=== PATIENT | female | born 1950 | race Caucasian/White ===

== ENCOUNTER 2024-10-18 04:15 | Emergency (ER) | payer OTHER ==
[~2024-10-18] VITALS: Ht 172.7 cm; Wt 84.0 kg
[~2024-10-18 04:15] MED LIST: ASPI-543 PO; CHOL20007 PO; LISI10TA34 PO; MET50T PO; SIMV20TA20 PO
--- NOTE | 2024-10-18 04:40 | ED.PDOC ---
History of Present Illness HPI Comments 74 y/o F is BIBA from home for 11/25 right rib pain s/p mechanical trip and fall. Per EMS report, son called after patient got up from her bed to use her bathroom, this morning, and lost balance and fell onto her right side. No lost of consciousness of additional injuries endorsed. Son assisted patient up. Vi tals stable and within normal limits. 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 Patient denies any headache, chest pain, shortness of breath, weakness, numbness, or further associated symptoms. 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, Medications, Allergies Allergies: Coded Allergies: NO KNOWN ALLERGIES (Unverified , 09/08/14) Home Meds Active Scripts Amoxicillin Trihydrate (Amoxicillin) 500 Mg Tab, 1 TAB PO TID for 5 Days, #15 TAB Prov:SEBASTIÁN ACE MD 10/18/24 Reported Medications Metoprolol Tartrate (LOPRESSOR TABLET) 50 Mg Tb, 1 TAB PO BID, #60 TAB 5 Refills 09/08/14 Simvastatin (Simvastatin) 20 Mg Tab, 1 TAB PO QPM, #30 TAB 5 Refills 09/08/14 Cholecalciferol (VITAMIN D3) 2,000 Unit Tab, 1 TAB PO DAILY, #30 TAB 5 Refills 09/08/14 Aspirin (Aspir-Low) 81 Mg Tab, 81 MG PO DAILY for 30 Days, MG 09/08/14 Lisinopril (Lisinopril) 10 Mg Tab, 10 MG PO DAILY for 30 Days, MG 09/08/14 Information Source: Patient, Emergency Med Personnel Mode of Arrival: EMS Severity: Moderate Timing: Hours Duration: Since onset Prehospital treatment: 12 Lead EKG, Accucheck, Dice Table Person Past Medical History PAST MEDICAL HISTORY: CVA, High Lipids, HTN Surgical History (Other): left nephrectomy GENERAL INSPECTOR History: Denies all GENERAL INSPECTOR Hx Family History Family History: Unknown Social History Smoker: Non-Smoker Alcohol: Denies ETOH Use Drugs: Denies Drug Use Lives In: Home All Other Systems: Reviewed and Negative (Comprehensive systems review obtained and negative except for what is stated in the HPI.) Physical Exam General Appearance: Moderate Distress, Normal HEENT: Normal ENT Inspection, Pharynx Normal, TMs Normal Neck: Full Range of Motion, Non-Tender, Normal, Normal Inspection Respiratory: Chest Non-Tender, Lungs Clear, No Accessory Muscle Use, No Respiratory Distress, Normal Breath Sounds Cardiovascular: No Edema, No JVD, No Murmur, No Gallop, Normal Peripheral Pulses, Regular Rate/Rhythm Breast Exam: Deferred Gastrointestinal: No Organomegaly, Non Tender, No Pulsatile Mass, Normal Bowel Sounds, Soft Genitalia: Deferred Pelvic: Deferred Rectal: Deferred Extremities: No calf tenderness, Normal capillary refill, Normal inspection, Normal range of motion, Non-tender, No pedal edema Musculoskeletal : Location: Right Extremity Location: Other (rib) Apperance: Normal, Tenderness 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 Was a procedure done?: No Differential Dx Considerations may include: fractures, contusions, bruising, musculoskeletal pain, among others X-Ray, Labs, Meds, VS Vital Signs Date Time Temp Pulse Resp B/P (MAP) Pulse Ox O2 Delivery O2 Flow Rate FiO2 10/18/24 07:41 98.0 65 18 149/54 (85) 97 98.0 10/18/24 05:00 68 14 96 Room Air* 0 21 10/18/24 04:58 99.8 68 14 167/55 (92) 96 99.8 10/18/24 04:15 98.2 74 16 158/68 (98) 96 98.2 Current Medications Medications (Trade) Dose Ordered Sig/No Route Start Time Stop Time Status Last Admin Acetaminophen/ Hydrocodone Bitart ([place] 10/325MG Tab) 1 tab ONCE ONCE PO 10/18/24 07:45 10/18/24 07:46 DC 10/18/24 07:44 Patient alert. Status post fall. No sign of any distress. Blood pressure slightly elevated. Saturation pristine on room air. No leg swelling. No deformities. Moving air. Chest x-ray does show mild inflammation. Possible pneumonitis. No obvious injury pain No head trauma. No scalp hematoma. No abdominal behavior. No sign of any distress pain Explained to the patient. Was given prescription of amoxicillin antibiotic. Was told to follow up with her primary care physician. Was told to come back if there is any problem. [place] [id number] Ph: [phone] DIAGNOSTIC IMAGING Diagnostic Imaging Report : [id number] Signed PATIENT: MAAME MICHAEL YACCT: [id number] UNIT: [id number] : 1950 LOC: ER ROOM / BED: / AGE / SEX: 74 / F ADM STATUS: REG ER SERVICE ORDERING PHYSICIAN: MARY CARVER MD PROCEDURE(s): CXR1 - CHEST XRAY 1 VIEW REASON: left chest wall pain ORDER NUMBER(s): [id number], ACCESSION NUMBER(s): [id number] CHEST RADIOGRAPH Indication: left chest wall pain Technique: Single frontal view of the chest was obtained COMPARISON: None FINDINGS: Lines and Tubes: None Lungs: Left basilar subsegmental atelectasis. Pleura: No effusion. No pneumothorax. Cardiomediastinal contours: Unremarkable Bones: Unremarkable IMPRESSION: Left basilar subsegmental atelectasis. ATED BY: JIN BALBUENA MD DICTATED DATE/TIME: 10/18/24616 SIGNED BY: JIN BALBUENA MD SIGNED DATE/TIME: 10/18/24616 CC: Time of 1ST Reevaluation: 04:50 Reevaluation 1ST: Unchanged Time of 2ND Reevaluation: 07:35 Reevaluation 2ND: Improved Patient Education/Counseling: Diagnosis, Treatment Family Education/Counseling: No Family Present Additional Information Previous visits reviewed: September 08, 2014 encounter for seizure The following tests were ordered, and results were reviewed by me: Additional Information was gathered from interviewing the following independent historians: EMS I reviewed and agreed with the following test results read by other providers: I discussed treatment and results with medical personnel and: patient Departure 1 Departure Time of Disposition: 07:36 Impression: Primary Impression: Pneumonitis Additional Impression: Musculoskeletal pain Disposition: 01 HOME / SELF CARE / HOMELESS Condition: Good e-Prescriptions Amoxicillin Trihydrate (Amoxicillin) 500 Mg Tab 1 TAB PO TID for 5 Days, #15 TAB Prov: MALKA,SEBASTIÁN MD 10/18/24 Discharged With: Self Critical Care Note Critical Care Time?: No Stability Stability form required: No Heart Score Heart Score: Heart Score Response (Comments) Value History N/A 0 EKG N/A 0 Age N/A 0 Risk Factors N/A 0 Troponin N/A 0 Total 0 I personally scribed for MARY CARVER MD ([email or web address]) on 10/18/24 at 04:40. Electronically submitted by Johnathan Mcnulty ([email or web address]). I personally scribed for SEBASTIÁN ACE MD ([email or web address]) on 10/18/24 at 07:50. Electronically submitted by Ruy Delgado ([email or web address]). MARY CARVER MD Oct 18, 2024 04:40 SEBASTIÁN ACE MD Oct 18, 2024 07:37
[2024-10-18 05:00] VITALS: PULSE 68; RESP 14; O2SAT 96
--- NOTE | 2024-10-18 06:19 | DVH ---
CHEST RADIOGRAPH Indication: left chest wall pain Technique: Single frontal view of the chest was obtained COMPARISON: None FINDINGS: Lines and Tubes: None Lungs: Left basilar subsegmental atelectasis. Pleura: No effusion. No pneumothorax. Cardiomediastinal contours: Unremarkable Bones: Unremarkable IMPRESSION: Left basilar subsegmental atelectasis.
[2024-10-18] MEDS ORDERED: AMOX500T3 PO (07:37)
[2024-10-18 07:41] VITALS: BP 149/54; PULSE 65; RESP 18; TEMP 98; O2SAT 97
[2024-10-18] MEDS: HYDROcodone-ACET 7.5/325MG TAB PO ONE (07:44)
[2024-10-18] MEDS: HYDROcodone-ACET 10/325MG TAB PO ONE (07:44)
== END 2024-10-18 08:11 | disposition home or self-care (01) ==
LOC: EDBD 04:15 → ER 04:15
DX: J98.4 Other disorders of lung (principal); M79.18 Myalgia, other site; I10 Essential (primary) hypertension; E78.5 Hyperlipidemia, unspecified; Z86.73 Personal history of transient ischemic attack (TIA), and cerebral infarction without residual deficits; Z79.899 Other long term (current) drug therapy; Z90.5 Acquired absence of kidney
CPT/HCPCS: 71045